=== PATIENT | female | born 2000 | race Caucasian/White ===

== ENCOUNTER 2022-04-27 13:15 | Outpatient (CLI) | payer OTHER | END 2022-04-27 13:16 | disposition home or self-care (01) | LOC: CSHULT 13:15 | PROVIDERS: ATTEND Nurse Practitioner Women's Health | DX: Z34.82 Encounter for supervision of other normal pregnancy, second trimester (principal); Z3A.29 29 weeks gestation of pregnancy | CPT/HCPCS: 76805 ==

== ENCOUNTER 2022-06-04 17:44 | Day surgery (SDC) | payer OTHER ==
[2022-06-04 18:11] VITALS: BMI 28.5
[2022-06-04] MEDS ORDERED: hydrALAZINE 20 MG/ML VIAL SLOW IVP PRN (22:44)
== END 2022-06-04 19:20 | disposition home or self-care (01) ==
LOC: CSHLD/OP 17:44
PROVIDERS: ATTEND Family Medicine
DX: O26.893 Other specified pregnancy related conditions, third trimester (principal); R10.2 Pelvic and perineal pain; M79.18 Myalgia, other site; O47.1 False labor at or after 37 completed weeks of gestation; Z3A.35 35 weeks gestation of pregnancy; Z79.899 Other long term (current) drug therapy; Z98.890 Other specified postprocedural states
CPT/HCPCS: 99283

== ENCOUNTER → 2022-06-29 | Day surgery (SDC) | payer OTHER | LOC: CSHLAB 08:25 | PROVIDERS: ATTEND Family Medicine | DX: Z20.822 Contact with and (suspected) exposure to COVID-19 (principal) | CPT/HCPCS: 85025; 86780; 86850; 86900; 86901; 87340; U0002 ==

== ENCOUNTER 2022-06-30 05:45 | Inpatient (IN) | payer OTHER ==
[2022-06-29 11:58] LABS: #Eosinphils 0.1 10x3/uL (0.0-0.5); #Monocytes 0.7 10x3/uL (0.0-1.1); #Neutrophils 6.6 10x3/uL (1.5-8.4); %Basophils 0.3 % (0.0-2.0); %Eosinophils 0.8 % (0.0-6.0); %Lymphocytes 18.6 % (18.0-47.0); %Monocytes 7.4 % (0.0-10.0); %Neutrophils 72.5 % (40.0-75.0); Hemoglobin 10.1 g/dL (12.0-15.5); Mean Corpuscular HGB CONC 32.1 g/dL (32.0-36.0); Mean Corpuscular Hemoglobin 24.6 pg (27.0-33.0); Mean Corpuscular Volume 76.8 fl (81.6-98.3); Mean Platelet Volume 10.7 fl (7.4-10.4); Platelet Count 210 10x3/uL (150-450); RBC Distribution Width 14.4 % (11.5-14.5); White Blood Cell (WBC) Count 9.1 10x3/uL (3.5-10.5)
[2022-06-29 12:25] LABS: SARS-CoV-2 NAA Rapid Test Not Detected (NotDetected)
[2022-06-29 12:33] LABS: HBSAg Index 0.16 S/CO (0-0.99); Hep B Surf Ag Non-Reactive S/CO (NonReactive); Syphilis Antibody Nonreactive (Nonreactive); Syphilis Antibody Index 0.03 S/CO (<1.00 Non-Reactive)
[2022-06-30 06:16] VITALS: BMI 30.2
[2022-06-30] MEDS ORDERED: Phenylephrine 40 MG/NS 250 ML 250 ML ONE ×2 (08:04→09:13)
[2022-06-30] MEDS ORDERED: Oxytocin 10 UNITS/ML VIAL ONE ×2 (08:04→09:13)
[2022-06-30] MEDS ORDERED: Bupivacaine 0.75% W/DEXTROSE 8.25% 2 ML AMP ONE (08:04)
[2022-06-30] MEDS ORDERED: Dexamethasone 4 mg/ml Vial ONE (08:04)
[2022-06-30] MEDS ORDERED: Ketorolac Tromethamine 30 MG/ML VIAL ONE ×2 (08:04→09:13)
[2022-06-30] MEDS ORDERED: PHENYLEPHRINE-NS 100 MCG/ML 10 ML SYRINGE ONE (08:04)
[2022-06-30] MEDS ORDERED: ePHEDrine Sulfate 50 MG/10 ML VIAL ONE (08:04)
[2022-06-30] MEDS ORDERED: Ondansetron PF 4 MG/2 ML Vial ONE (08:04)
[2022-06-30] MEDS ORDERED: Morphine PF 10 MG/10 ML VIAL ONE (08:04)
[2022-06-30] MEDS ORDERED: CEFAZOLIN 2 GM VIAL ONE (08:08)
[2022-06-30] MEDS ORDERED: Lactated Ringer's 1,000 ML IV SCH (08:09)
[2022-06-30] MEDS ORDERED: CEFAZOLIN 2 GM in Sodium Chloride 0.9% 100 ML IVPB SCH (08:09)
[2022-06-30] MEDS ORDERED: Famotidine/PF 20 mg/2ml Vial SLOW IVP PRN (08:09)
[2022-06-30] MEDS ORDERED: Acetaminophen 500 MG TAB PO PRN (08:09)
[2022-06-30] MEDS ORDERED: Ondansetron PF 4 MG/2 ML Vial IVP PRN ×3 (08:09→11:27)
[2022-06-30] MEDS ORDERED: Bicitra 30 ML UDCUP PO PRN (08:09)
[2022-06-30] MEDS ORDERED: Butorphanol Tartrate 1 MG/ML VIAL SLOW IVP PRN (08:09)
[2022-06-30] MEDS ORDERED: hydrALAZINE 20 MG/ML VIAL SLOW IVP PRN ×2 (08:09→11:27)
[2022-06-30] MEDS ORDERED: Promethazine HCl 25 MG/ML VIAL IM PRN ×3 (08:09→11:27)
[2022-06-30] MEDS ORDERED: Promethazine HCl 25 MG SUPP PR PRN (09:25)
[2022-06-30] MEDS ORDERED: Meperidine HCl/PF 25 MG/ML VIAL SLOW IVP PRN (09:25)
[2022-06-30] MEDS ORDERED: Fentanyl 100 MCG/2 ML VIAL SLOW IVP PRN (09:25)
[2022-06-30] MEDS ORDERED: diphenhydrAMINE 50 MG/ML VIAL IVP PRN (09:25)
[2022-06-30] MEDS ORDERED: L&D-Morphine 4 MG/ML VIAL SLOW IVP PRN (09:25)
[2022-06-30] MEDS ORDERED: Ketorolac Tromethamine 30 MG/ML VIAL IVP PRN (09:25)
[2022-06-30] MEDS ORDERED: Ondansetron HCl/PF 4 MG/2 ML Vial IVP PRN (09:25)
[2022-06-30] MEDS ORDERED: Moisturizing Cream (Eucerin) 113 GM JAR TOP PRN (09:25)
[2022-06-30] MEDS ORDERED: Naloxone HCl 0.4 mg/ml Vial IV PRN (09:25)
[2022-06-30] MEDS ORDERED: Naloxone HCl 0.4 mg/ml Vial IVP PRN ×2 (09:25)
[2022-06-30] MEDS ORDERED: Communication Order-Pharmacy FS SCH (09:30)
[2022-06-30] MEDS ORDERED: Ketorolac Tromethamine 30 MG/ML VIAL IVP SCH (09:30)
[2022-06-30] MEDS ORDERED: NS w/ Oxytocin 30 units 500 ML IV SCH (11:27)
[2022-06-30] MEDS ORDERED: Bisacodyl 10 MG SUPP PR PRN (11:27)
[2022-06-30] MEDS ORDERED: diphenhydrAMINE 25 MG CAP PO PRN (11:27)
[2022-06-30] MEDS ORDERED: Meperidine HCl/PF 25 MG/ML VIAL IM PRN (11:27)
[2022-06-30] MEDS ORDERED: Simethicone Chewable 80 MG TAB PO PRN (11:27)
[2022-06-30] MEDS ORDERED: Boostrix 0.5 ML (Tdap) VIAL (>/=7 yrs of age) IM ONE (11:27)
[2022-06-30] MEDS ORDERED: Lanolin Ointment 7 GM TUBE TOP PRN (11:27)
[2022-06-30] MEDS: Ketorolac Tromethamine 30 MG/ML VIAL IVP SCH ×2 (15:10→21:01)
[2022-06-30] MEDS: Ferrous Sulfate 325 MG TAB PO SCH (21:01)
[2022-06-30] MEDS: Docusate 100 MG CAP PO SCH (21:04)
[2022-06-30] MEDS ORDERED: HYDROcodone/Acetaminophen 5/325 mg Tablet PO PRN ×2 (21:30)
[2022-07-01] MEDS: Ketorolac Tromethamine 30 MG/ML VIAL IVP SCH ×2 (04:21→09:08)
[2022-07-01 04:51] LABS: Hemoglobin 8.9 g/dL (12.0-15.5); Mean Corpuscular HGB CONC 31.7 g/dL (32.0-36.0); Mean Corpuscular Hemoglobin 24.3 pg (27.0-33.0); Mean Corpuscular Volume 76.8 fl (81.6-98.3); Mean Platelet Volume 10.9 fl (7.4-10.4); Platelet Count 179 10x3/uL (150-450); RBC Distribution Width 14.6 % (11.5-14.5); Red Blood Cell (RBC) Count 3.66 10x6/uL (3.90-5.03); White Blood Cell (WBC) Count 10.8 10x3/uL (3.5-10.5)
[2022-07-01] MEDS: Ferrous Sulfate 325 MG TAB PO SCH ×2 (09:07→21:43)
[2022-07-01] MEDS: Prenatal Vitamin 1 TAB PO SCH (09:07)
[2022-07-01] MEDS: Docusate 100 MG CAP PO SCH ×2 (09:08→21:42)
[2022-07-01] MEDS: Ibuprofen 800 MG TAB PO SCH ×2 (14:25→21:43)
[2022-07-02] MEDS: Ibuprofen 800 MG TAB PO SCH ×2 (05:56→14:19)
[2022-07-02 08:13] VITALS: BP 108/68; TEMP 98.2
[2022-07-02] MEDS: Docusate 100 MG CAP PO SCH (09:05)
[2022-07-02] MEDS: Prenatal Vitamin 1 TAB PO SCH (09:05)
[2022-07-02] MEDS: Ferrous Sulfate 325 MG TAB PO SCH (09:05)
== END 2022-07-02 18:10 | disposition home or self-care (01) | DRG 788 ==
LOC: CSHLD 05:45 → CSHPP 11:10
PROVIDERS: ADMIT Family Medicine; ATTEND Family Medicine
PROC: 10D00Z1 Extraction of Products of Conception, Low, Open Approach (ICD-10-PCS; principal; 2022-06-30)
DX: O34.211 Maternal care for low transverse scar from previous cesarean delivery (principal); Z3A.39 39 weeks gestation of pregnancy; Z37.0 Single live birth; Z20.822 Contact with and (suspected) exposure to COVID-19; Z88.1 Allergy status to other antibiotic agents
CPT/HCPCS: 36415; 51702; 74018; 85025; 85027; 86780; 86850; 86900; 86901; 87340; J1100; J1885; J2274; J2310; J2405; J2590; J3490; U0002